=== PATIENT | female | born 1935 | race Caucasian/White ===

== ENCOUNTER 2022-04-26 12:39 | Outpatient (CLI) | payer MEDICARE, OTHER, SELFPAY | END 2022-04-26 12:40 | disposition home or self-care (01) | LOC: AMB 05-29 13:10 | PROVIDERS: Visit Provider Family Medicine | DX: R53.1 Weakness (principal) | CPT/HCPCS: A0998 ==

== ENCOUNTER 2023-12-21 13:34 | Outpatient (CLI) | payer MEDICARE, OTHER, SELFPAY | END 2023-12-21 13:35 | disposition home or self-care (01) | LOC: AMB 12-27 07:14 | PROVIDERS: PCP Family Medicine; Visit Provider Family Medicine | DX: M54.9 Dorsalgia, unspecified (principal) | CPT/HCPCS: A0425; A0429 ==

== ENCOUNTER 2023-12-21 13:51 | Observation (INO) | payer MEDICARE, OTHER, SELFPAY ==
[2023-12-21] VITALS (15 sets, daily range): BP systolic 105–145; BP diastolic 54–121; PULSE 53–79; RESP 12–18; TEMP 36–36.5; O2SAT 95–97; BMI 30.4; BMI 30.8
--- NOTE | 2023-12-21 14:07 | ED.BACK ---
HPI - Back Pain/Injury General Time Seen by Provider: 14:07 <Nadia Hammond MD - Last Filed: 12/24/23 09:06> Date Seen: 12/21/23 <Nadia Hammond MD - Last Filed: 12/24/23 09:06> Chief Complaint: Back Injury/Pain <Nadia Hammond MD - Last Filed: 12/24/23 09:06> Stated Complaint: Back pain <Nadia Hammond MD - Last Filed: 12/24/23 09:06> Time Seen by Provider: 12/21/23 13:53 <Nadia Hammond MD - Last Filed: 12/24/23 09:06> Source: patient, family, EMS and RN notes reviewed <Nadia Hammond MD - Last Filed: 12/24/23 09:06> Mode of arrival: EMS <Nadia Hammond MD - Last Filed: 12/24/23 09:06> Limitations: no limitations <Nadia Hammond MD - Last Filed: 12/24/23 09:06> History of Present Illness HPI Narrative: This 88-year-old female is brought over from [facility] by EMS for increasing low back pain. Patient is in independent living but does get staff to give her a.m. medications. She otherwise is in independent living there. On Thursday around 11:00 a.m. patient started having difficulty getting out of a chair due to low back pain. There was no trauma no fall. Her daughter notes she has a history of a compression fraction 2018. She was initially seen here, plain films obtained which did not show anything, was discharged. Her niece brought her to her house and by the time they were in [place], she was having so much pain they did go in and had an MRI showing the compression fracture, the believe it was L5. She resided in [place] except for [place] until convalescing after her last compression fracture. In July of 2022 she had a 2nd compression fracture, went to rehab and then her niece moved her up to [place]. It is hurting to turn, walk, any movement. She does have a back brace which her niece got on her yesterday which did bring some relief. Yesterday she was having significant difficulty just getting out of bed to go to the toilet. There is no numbness tingling in the legs. She states she occasionally feels the pain going into the left leg with walking. Her niece is interested in having MRI done, understands the limitations of initial plain film imaging. Patient does have some underlying dementia/memory issues per her niece. She is on anticoagulants, only a lower her Tylenol residing independently so that she does not have increased risk of falls and complications of constipation per her niece. Patient declines anything for pain management at this time, just lying flat she is not uncomfortable. <Nadia Hammond MD - Last Filed: 12/24/23 09:06> Related Data Home Medications: Home Medications ?Medication ?Instructions ?Recorded ?Confirmed bimatoprost 0.01 % eye drops 1 drp ophthalmic (eye) QPM 12/21/23 12/21/23 (Lumigan) acetaminophen 500 mg capsule 1,000 mg PO Q8H PRN 12/22/23 12/22/23 apixaban 5 mg tablet (Eliquis) 5 mg PO BID 12/22/23 12/22/23 calcium carbonate 600 mg-vitamin 2 tab PO DAILY 12/22/23 12/22/23 D3 10 mcg (400 unit) tablet (Calcium 600 + D(3)) donepezil 10 mg tablet 10 mg PO QHS 12/22/23 12/22/23 levothyroxine 50 mcg tablet 50 mcg PO DAILY 12/22/23 12/22/23 (Levoxyl) multivitamin,rb-rczj-Dh-FA-min tab 12/22/23 timolol 0.5 % eye drops (Betimol) 1 drp ophthalmic (eye) DAILY 12/22/23 12/22/23 venlafaxine 75 mg capsule,extended 225 mg PO QPM 12/22/23 12/22/23 release 24 hr vitamins A,C,I-vsko-dasgcd 4,296 1 cap PO DAILY 12/22/23 12/22/23 mcg-226 mg-90 mg capsule (PreserVision AREDS) Previous Rx's ?Medication ?Instructions ?Recorded acetaminophen 650 mg 1,300 mg (2 x 650 mg) PO Q12H #60 12/23/23 tablet,extended release tabs lidocaine 5 % topical patch 1 patch transdermal Q24H 30 days 12/23/23 #30 ea <Nadia Hammond MD - Last Filed: 12/24/23 09:06> Allergies/Adverse Reactions: Allergies Allergy/AdvReac Type Severity Reaction Status Date / Time No Known Drug Allergies Allergy Verified 12/21/23 14:03 <Nadia Hammond MD - Last Filed: 12/24/23 09:06> Review of Systems Status of ROS: Reports: 6 or more systems reviewed and unremarkable except as noted in History and below <Nadia Hammond MD - Last Filed: 12/24/23 09:06> Narrative: Negative at this time unless noted in the HPI but do question patient's memory for recent details. Her niece does support that she does have memory issues per <Nadia Hammond MD - Last Filed: 12/24/23 09:06> [facility] Medical History: Medical History (Updated 12/23/23 @ 12:17 by Jack Godwin MD) Osteoarthritis of right knee ?M17.11 - Unilateral primary osteoarthritis, right knee (ICD-10) Chronic GERD ?K21.9 - Gastro-esophageal reflux disease without esophagitis (ICD-10) Depression ?F32.A - Depression, unspecified (ICD-10) Chronic anticoagulation ?Z79.01 - supervisor intermediates (current) use of anticoagulants (ICD-10) Paroxysmal A-fib ?I48.0 - Paroxysmal atrial fibrillation (ICD-10) Hypothyroidism ?E03.9 - Hypothyroidism, unspecified (ICD-10) Dementia ?F03.90 - Unspecified dementia, unspecified severity, without behavioral disturbance, psychotic disturbance, mood disturbance, and anxiety (ICD-10) <Nadia Hammond MD - Last Filed: 12/24/23 09:06> Surgical History: Surgical History (Updated 12/21/23 @ 20:16 by Lauren Nichole MD) Hx of tonsillectomy ?Z90.89 - Acquired absence of other organs (ICD-10) Hx of total knee arthroplasty ?Z96.659 - Presence of unspecified artificial knee joint (ICD-10) History of cataract ?Z86.69 - Personal history of other diseases of the nervous system and sense organs (ICD-10) History of appendectomy ?Z90.49 - Acquired absence of other specified parts of digestive tract (ICD-10) <Nadia Hammond MD - Last Filed: 12/24/23 09:06> Social History: Social History (Updated 12/21/23 @ 20:38 by Lauren Nichole MD) Narrative: Resides at [facility]. Her niece is her emergency contact and healthcare power document review specialist. . no children. Lived in [place] for years. What is your current living situation?: I presently have a place to live Problems where you live: no known problems Problems where you live details: n/a In the past 12 months, utilities in danger of being shut off: no In past 12 months, lack of transportation kept you from medical appts, meetings, work, or getting things needed for daily living: no In the past 12 mos, have been you worried that your food would run out before you had money to buy more?: never true In the past 12 mos, the food you bought just didn't last and you didn't have money to buy more?: never true Smoking Status: Never smoker How often do you have a drink containing alcohol: never AUDIT-C Alcohol total score: 0 Non-prescribed substance use: denies use Caffeine: Yes (coffee) How often does anyone, including family, friends and others, physically hurt you: never How often does anyone, including family, friends and others, insult or talk down to you: never How often does anyone, including family, friends and others, threaten you with harm: never How often does anyone, including family, friends and others, scream or curse at you: never <Nadia Hammond MD - Last Filed: 12/24/23 09:06> Exam Const: Vital Signs, click to edit/add: Vital Signs - 24 hr 12/21/23 13:57 12/21/23 14:01 12/21/23 15:02 Temperature 97.0 F L Pulse Rate 66 67 Pulse Rate [Pulse Oximeter] 61 Respiratory Rate 16 14 16 Blood Pressure 112/54 L Blood Pressure [Ri ght Upper Arm] 124/68 Pulse Oximetry 97 95 97 Oxygen Delivery Me thod Room Air 12/21/23 15:32 12/21/23 16:01 12/21/23 16:31 Temperature Pulse Rate 58 L 60 79 Pulse Rate [Pulse Oximeter] Respiratory Rate 14 12 12 Blood Pressure 119/76 117/70 105/63 Blood Pressure [Ri ght Upper Arm] Pulse Oximetry 96 97 95 Oxygen Delivery Me thod 12/21/23 17:32 12/21/23 18:02 12/21/23 19:01 Temperature Pulse Rate 63 60 64 Pulse Rate [Pulse Oximeter] Respiratory Rate 14 14 16 Blood Pressure 145/121 H 124/79 124/61 Blood Pressure [Ri ght Upper Arm] Pulse Oximetry 95 95 97 Oxygen Delivery Me thod 12/21/23 20:02 12/21/23 20:11 Temperature 97.0 F L Pulse Rate 53 L Pulse Rate [Pulse Oximeter] 61 Respiratory Rate 14 14 Blood Pressure 114/65 Blood Pressure [Ri ght Upper Arm] 124/68 Pulse Oximetry 97 Oxygen Delivery Me thod This 88-year-old female was brought in by EMS, she is alert, interactive, no apparent distress. Looks comfortable lying flat in the bed. Sclera clear, conjugate gaze. Able speak in complete sentences. Lungs are clear anteriorly along the axilla. CV regular rate and rhythm, do not hear any murmur. Abdomen is soft, rebound or guarding, no organomegaly. She has normal sensation in her lower extremities, normal motor of toes and ankles, can overcome her strength but it is symmetrical in not what I would expect for her age. Can straight leg raise with my assistance, does complain that her hamstrings hurt on the left but no radiculopathic pain. Complains of pain about 30 degrees on the right leg, some pain going into upper leg. Did not have patient ambulate at this time. <Ndaia Hammond MD - Last Filed: 12/24/23 09:06> Vital Signs, click to edit/add: Vital Signs - 24 hr 12/21/23 13:57 12/21/23 14:01 12/21/23 15:02 Temperature 97.0 F L Pulse Rate 66 67 Pulse Rate [Pulse Oximeter] 61 Respiratory Rate 16 14 16 Blood Pressure 112/54 L Blood Pressure [Ri ght Upper Arm] 124/68 Pulse Oximetry 97 95 97 Oxygen Delivery Me thod Room Air 12/21/23 15:32 12/21/23 16:01 12/21/23 16:31 Temperature Pulse Rate 58 L 60 79 Pulse Rate [Pulse Oximeter] Respiratory Rate 14 12 12 Blood Pressure 119/76 117/70 105/63 Blood Pressure [Ri ght Upper Arm] Pulse Oximetry 96 97 95 Oxygen Delivery Me thod 12/21/23 17:32 12/21/23 18:02 12/21/23 19:01 Temperature Pulse Rate 63 60 64 Pulse Rate [Pulse Oximeter] Respiratory Rate 14 14 16 Blood Pressure 145/121 H 124/79 124/61 Blood Pressure [Ri ght Upper Arm] Pulse Oximetry 95 95 97 Oxygen Delivery Me thod 12/21/23 20:02 12/21/23 20:11 Temperature 97.0 F L Pulse Rate 53 L Pulse Rate [Pulse Oximeter] 61 Respiratory Rate 14 14 Blood Pressure 114/65 Blood Pressure [Ri ght Upper Arm] 124/68 Pulse Oximetry 97 Oxygen Delivery Me thod <Leodan Anderson MD - Last Filed: 12/21/23 20:24> Documenting provider has reviewed patient's vital signs: yes <Nadia Hammond MD - Last Filed: 12/24/23 09:06> Course Course ED Course: Patient signed out to Dr. Anderson at 4:00 p.m.-shift change. 88-year-old female with a history of mild dementia brought to the ER today by EMS from her assisted living for low back pain. She has a previous history of a lumbar compression fracture in 2018 and then a 2nd lumbar compression fracture in 2021. She is having low back pain with some radiation to her left leg for the past couple of days. Is pretty uncomfortable when she is up and walking and having difficulty moving around but is not having pain when resting in bed. He also possible intermittent radicular symptoms. No focal weakness on her exam. MRI of her lumbar spine has been ordered and will be obtained at about 4:30 p.m.. I will follow-up on the results. In addition we will give the patient a g of Tylenol here to see if he can relieve her pain and get her more mobilized. If the MRI shows a surgical abnormality she may require transfer to a appropriate facility with neuro or spine surgery. If it does not show any acute surgical abnormality, the patient may still require admission here in [place] for pain control and PT. However if the MRI is reassuring and the patient's pain is improved after Tylenol, she could potentially discharge back to her care facility at [facility]. MRI lumbar spine Impression: 1. 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 2. Chronic mild-moderate L3 superior endplate compression deformity. 3. Lumbar spondylosis, low-grade degenerative spondylolisthesis, and Modic endplate changes as detailed. 4. At T12-L1, mild-moderate spinal canal narrowing secondary to L1 cortical retropulsion. 5. At L4-L5, [id number]-right lateral recess stenosis with potential descending L5 nerve root impingement. 6. No high-grade neural foraminal or central spinal canal stenosis. Since lumbar spine spine MRI does not show any clear compression fracture and or any clear new acute pathology. Will obtain CT pelvis to look for other injury such as possible pelvic or hip fracture that be causing her left buttock pain. CT pelvis IMPRESSION: No acute or specific finding to explain left buttock or hip pain. MRI does show at L4-5 a left more than right lateral recess stenosis with potential descending L5 nerve root impingement. However no definite acute surgical lesion. Overall the patient's pain is tolerable and controlled and is quite comfortable she is resting in bed. She is still quite uncomfortable wonder she tries to get up and move around. She does require assist of at least 1 person to get out of bed. She think she would be able to walk with her walker. She is able to walk a few steps in the ER room. However she needs assist to get in and out of bed. Discussed with her daughter who is also concerned about her potential worsening dementia. MDM: At this point although there is no acute surgical lesion noted on her MRI L-spine or any acute fracture noted on her CT pelvis, she is having ongoing pain that makes it difficult for her to mobilize. Additionally her pain is confounded by the fact that she has dementia. She does represent a significant fall risk. She is requiring assist to get out of bed but once out of bed can walk with a walker. Overall she does not have adequate supports in her independent living to manage her current he level of mobility. family requests admission. I agree that hospitalization (at least overnight) for pain control and physical therapy consultation and potentially to arrange better outpatient resources, is indicated. Laboratory workup shows normal CBC and BMP. Mild anemia. No signs of active bleeding. She is not having any UTI symptoms. Discussed with our hospitalist, Dr. Nichole, who graciously agrees to admit. Updated patient and her family about the CT and MRI results. They are agreeable to be admitted. <Leodan Anderson MD - Last Filed: 12/21/23 20:24> Vital Signs Vital signs: Initial Vital Signs Temperature 97.0 F L 12/21/23 13:57 Temperature Source Temporal Artery Scan 12/21/23 13:57 Pulse Rate 61 12/21/23 13:57 Respiratory Rate 16 12/21/23 13:57 Blood Pressure 124/68 12/21/23 13:57 Blood Pressure Mean 86 12/21/23 13:57 Blood Pressure Position Supine 12/21/23 13:57 Pulse Oximetry 97 12/21/23 13:57 Oxygen Delivery Method Room Air 12/21/23 13:57 Vital Signs Temperature 97.0 F L 12/21/23 13:57 Pulse Rate 61 12/21/23 13:57 Respiratory Rate 16 12/21/23 13:57 Blood Pressure 124/68 12/21/23 13:57 Pulse Oximetry 97 12/21/23 13:57 Oxygen Delivery Method Room Air 12/21/23 13:57 Temperature 97.8 F 12/23/23 07:00 Pulse Rate 61 12/23/23 07:00 Respiratory Rate 16 12/23/23 07:00 Blood Pressure 118/73 12/23/23 07:00 Pulse Oximetry 96 12/23/23 07:00 Oxygen Delivery Method Room Air 12/23/23 07:00 <Nadia Hammond MD - Last Filed: 12/24/23 09:06> Initial Vital Signs Temperature 97.0 F L 12/21/23 13:57 Temperature Source Temporal Artery Scan 12/21/23 13:57 Pulse Rate 61 12/21/23 13:57 Respiratory Rate 16 12/21/23 13:57 Blood Pressure 124/68 12/21/23 13:57 Blood Pressure Mean 86 12/21/23 13:57 Blood Pressure Position Supine 12/21/23 13:57 Pulse Oximetry 97 12/21/23 13:57 Oxygen Delivery Method Room Air 12/21/23 13:57 Vital Signs Temperature 97.0 F L 12/21/23 13:57 Pulse Rate 61 12/21/23 13:57 Respiratory Rate 16 12/21/23 13:57 Blood Pressure 124/68 12/21/23 13:57 Pulse Oximetry 97 12/21/23 13:57 Oxygen Delivery Method Room Air 12/21/23 13:57 Temperature 97.8 F 12/23/23 07:00 Pulse Rate 61 12/23/23 07:00 Respiratory Rate 16 12/23/23 07:00 Blood Pressure 118/73 12/23/23 07:00 Pulse Oximetry 96 12/23/23 07:00 Oxygen Delivery Method Room Air 12/23/23 07:00 <Leodan Anderson MD - Last Filed: 12/21/23 20:24> Medications Administered Medications: Discontinued Medications Generic Name Dose Route Start Last Admin Trade Name Freq PRN Reason Stop Dose Admin Acetaminophen 1,000 mg 12/21/23 16:14 12/21/23 17:20 Acetaminophen 500 Mg Tablet PO 12/21/23 16:15 1,000 mg ONCE ONE Administration Acetaminophen 1,300 mg 12/22/23 01:00 12/23/23 09:01 Acetaminophen 650 Mg Tablet Er PO 1,300 mg Q8H SARAN Administration Apixaban 5 mg 12/21/23 21:00 12/23/23 09:01 Apixaban 5 Mg Tablet PO 5 mg BID SARAN Administration Calcitonin Chambers 1 spray 12/21/23 21:00 12/22/23 20:43 Calcitonin Chambers Nasal [place] 200 Unit NOSTRIL-B 1 spray HS SARAN Administration Donepezil HCl 10 mg 12/21/23 21:00 12/23/23 09:01 Donepezil 10 Mg Tablet PO 10 mg DAILY SARAN Administration Ketorolac Tromethamine 15 mg 12/21/23 18:16 12/21/23 18:40 Ketorolac 15 Mg/Ml Inj IVP 12/21/23 18:17 15 mg ONCE ONE Administration Levothyroxine Sodium 50 mcg 12/23/23 08:00 12/23/23 09:01 Levothyroxine 50 Mcg Tablet PO 50 mcg DAILY@0800 SARAN Administration Lidocaine 1 patch 12/21/23 20:45 12/22/23 20:43 Lidocaine 5% Patch TRANSDERMA 1 patch Q24H SARAN Administration Protocol Timolol [Betimol] 0. 0 drop 12/22/23 10:15 12/22/23 10:41 5 % Drops Opth EYE-BOTH 1 drop DAILY SARAN Administration Bimatoprost Opth 0.3 0 each 12/22/23 10:30 12/22/23 10:42 % Soln EYE-BOTH Not Given HS SARAN Senna/Docusate Sodium 1 tab 12/21/23 20:27 12/23/23 09:01 Sennosides/Docusate Tablet PO 1 tab DAILY PRN Administration Sodium Chloride 5 ml 12/21/23 21:00 12/22/23 21:03 Sodium Chloride 0.9 % (Flush) 10 Ml Syringe IVF Not Given BID SARAN Venlafaxine HCl 225 mg 12/22/23 09:00 12/23/23 09:01 Venlafaxine Er 75 Mg Capsule PO 225 mg DAILY SARAN Administration <Nadia Hammond MD - Last Filed: 12/24/23 09:06> Discontinued Medications Generic Name Dose Route Start Last Admin Trade Name Freq PRN Reason Stop Dose Admin Acetaminophen 1,000 mg 12/21/23 16:14 12/21/23 17:20 Acetaminophen 500 Mg Tablet PO 12/21/23 16:15 1,000 mg ONCE ONE Administration Acetaminophen 1,300 mg 12/22/23 01:00 12/23/23 09:01 Acetaminophen 650 Mg Tablet Er PO 1,300 mg Q8H SARAN Administration Apixaban 5 mg 12/21/23 21:00 12/23/23 09:01 Apixaban 5 Mg Tablet PO 5 mg BID SARAN Administration Calcitonin Chambers 1 spray 12/21/23 21:00 12/22/23 20:43 Calcitonin Chambers Nasal [place] 200 Unit NOSTRIL-B 1 spray HS SARAN Administration Donepezil HCl 10 mg 12/21/23 21:00 12/23/23 09:01 Donepezil 10 Mg Tablet PO 10 mg DAILY SARAN Administration Ketorolac Tromethamine 15 mg 12/21/23 18:16 12/21/23 18:40 Ketorolac 15 Mg/Ml Inj IVP 12/21/23 18:17 15 mg ONCE ONE Administration Levothyroxine Sodium 50 mcg 12/23/23 08:00 12/23/23 09:01 Levothyroxine 50 Mcg Tablet PO 50 mcg DAILY@0800 SARAN Administration Lidocaine 1 patch 12/21/23 20:45 12/22/23 20:43 Lidocaine 5% Patch TRANSDERMA 1 patch Q24H SARAN Administration Protocol Timolol [Betimol] 0. 0 drop 12/22/23 10:15 12/22/23 10:41 5 % Drops Opth EYE-BOTH 1 drop DAILY SARAN Administration Bimatoprost Opth 0.3 0 each 12/22/23 10:30 12/22/23 10:42 % Soln EYE-BOTH Not Given HS SARAN Senna/Docusate Sodium 1 tab 12/21/23 20:27 12/23/23 09:01 Sennosides/Docusate Tablet PO 1 tab DAILY PRN Administration Sodium Chloride 5 ml 12/21/23 21:00 12/22/23 21:03 Sodium Chloride 0.9 % (Flush) 10 Ml Syringe IVF Not Given BID SARAN Venlafaxine HCl 225 mg 12/22/23 09:00 12/23/23 09:01 Venlafaxine Er 75 Mg Capsule PO 225 mg DAILY SARAN Administration <Leodan Anderson MD - Last Filed: 12/21/23 20:24> MDM - Back Pain/Injury Lab Data Labs: Lab Results 12/21/23 Range/Units 17:35 WBC 5.50 (4.50-11.00) K/uL RBC 3.42 L (4.00-5.20) m/uL Hgb 11.6 L (12.0-16.0) gm/dL Hct 36.0 (33.0-51.0) % MCV 105 H (80-100) fL MCH 34 (26-34) pg MCHC 32 (32-36) gm/dL RDW Coeff of Bret 13.0 (11.5-15.5) % Plt Count 259 (140-440) K/uL Neut % (Auto) 57.4 (42.0-72.0) % Lymph % (Auto) 26.9 (20-44) % [place] % (Auto) 13.1 H (0.0-11.0) % Eos % (Auto) 2.2 (0.0-7.0) % Baso % (Auto) 0.4 (0.0-3.0) % Neut # (Auto) 3.16 (1.7-7.0) K/uL Lymph # (Auto) 1.48 (0.90-2.90) K/uL [place] # (Auto) 0.70 (0.00-0.90) K/UL Eos # (Auto) 0.12 (0.00-0.50) K/uL Baso # (Auto) 0.02 (0.00-0.30) K/uL Abs Immat Gran (auto) 0.00 (0.00-0.30) K/uL Imm/Tot Granulo (auto) 0.0 % Sodium 140 (135-149) mmol/L Potassium 4.2 (3.6-5.1) mmol/L Chloride 106 (96-114) mmol/L Carbon Dioxide 27 (20-32) mmol/L Anion Gap 7 (7-15) mEq/L BUN 13 (7-30) mg/dL Creatinine 0.9 (0.5-1.5) mg/dL Estimated Creat Clear 30.76 Estimated GFR 61 ml/min Glucose 104 (60-115) mg/dL Calcium 9.0 (8.4-10.6) mg/dL <Nadia Hammond MD - Last Filed: 12/24/23 09:06> Lab Results 12/21/23 Range/Units 17:35 WBC 5.50 (4.50-11.00) K/uL RBC 3.42 L (4.00-5.20) m/uL Hgb 11.6 L (12.0-16.0) gm/dL Hct 36.0 (33.0-51.0) % MCV 105 H (80-100) fL MCH 34 (26-34) pg MCHC 32 (32-36) gm/dL RDW Coeff of Bret 13.0 (11.5-15.5) % Plt Count 259 (140-440) K/uL Neut % (Auto) 57.4 (42.0-72.0) % Lymph % (Auto) 26.9 (20-44) % [place] % (Auto) 13.1 H (0.0-11.0) % Eos % (Auto) 2.2 (0.0-7.0) % Baso % (Auto) 0.4 (0.0-3.0) % Neut # (Auto) 3.16 (1.7-7.0) K/uL Lymph # (Auto) 1.48 (0.90-2.90) K/uL [place] # (Auto) 0.70 (0.00-0.90) K/UL Eos # (Auto) 0.12 (0.00-0.50) K/uL Baso # (Auto) 0.02 (0.00-0.30) K/uL Abs Immat Gran (auto) 0.00 (0.00-0.30) K/uL Imm/Tot Granulo (auto) 0.0 % Sodium 140 (135-149) mmol/L Potassium 4.2 (3.6-5.1) mmol/L Chloride 106 (96-114) mmol/L Carbon Dioxide 27 (20-32) mmol/L Anion Gap 7 (7-15) mEq/L BUN 13 (7-30) mg/dL Creatinine 0.9 (0.5-1.5) mg/dL Estimated Creat Clear 30.76 Estimated GFR 61 ml/min Glucose 104 (60-115) mg/dL Calcium 9.0 (8.4-10.6) mg/dL <Leodan Anderson MD - Last Filed: 12/21/23 20:24> Discharge Plan Discharge Clinical Impression: Low back pain, Left buttock pain <Nadia Hammond MD - Last Filed: 12/24/23 09:06> Patient Disposition: Admitted As Observation <Nadia Hammond MD - Last Filed: 12/24/23 09:06> Condition: Stable <Nadia Hammond MD - Last Filed: 12/24/23 09:06> Activity Level: Activity as Tolerated and Use Walker <Nadia Hammond MD - Last Filed: 12/24/23 09:06> Activity as Tolerated and Use Walker <Leodan Anderson MD - Last Filed: 12/21/23 20:24> Discharge Diet: Regular <Nadia Hammond MD - Last Filed: 12/24/23 09:06> Regular <Leodan Anderson MD - Last Filed: 12/21/23 20:24>
--- NOTE | 2023-12-21 14:16 | MR_ITS ---
Patient: LARRY SAUNDERS Facility:?[facility] RIS Patient ID:?[id number] Site Patient ID:?[id number]. Site :?[id number] Study:?MRI-Spine Lumbar WO-12/21/2023 5:08:45 PM Ordering Physician:DAYO Final Report: Indication: Back pain Technique: Multiplanar, multisequence, MRI of the lumbar spine, obtained without contrast. Comparison: CT abdomen and pelvis report 03/11/2021 Findings: The lumbar lordosis is slightly exaggerated. There is a chronic severe L1 burst fracture, with approximately 8 mm cortical retropulsion, and a chronic mild- moderate L3 superior endplate compression deformity without significant retropulsion. Degenerative grade 1 retrolisthesis at L3-4, and degenerative grade 1 anterolisthesis at L4-5. No acute osseous abnormality. Minor Modic type 1 opposing endplate changes posteriorly at L2-3. Modic type 2 opposing endplate changes at L3-4. Partial bony ankylosis across L5-S1. Conus medullaris terminates at L2. No concerning findings in the paraspinal soft tissues. The included SI joints are unremarkable. T12-L1: L1 posterosuperior corner retropulsion, mild diffuse disc bulge, facet arthropathy. No neural foraminal stenosis. Mild-moderate spinal canal narrowing. L1-L2: Minimal disc bulge, facet arthropathy. No neural foraminal or spinal canal stenosis. L2-L3: Diffuse disc bulge, right asymmetric facet arthropathy. No left, mild right neural foraminal narrowing. No spinal canal stenosis. L3-L4: Mild diffuse disc-osteophyte complex, facet arthropathy. No significant neural foraminal stenosis. Mild right lateral recess narrowing without central spinal canal stenosis.. L4-L5: Disc unroofing/bulge, left asymmetric facet arthropathy. No neural foraminal stenosis. Mild spinal canal narrowing with lwni-kqhhmis-bmor-right lateral recess stenosis and potential descending L5 nerve root impingement. L5-S1: Partial disc space ankylosis, laterally eccentric osteophytes, facet arthropathy. No neural foraminal or spinal canal stenosis. Impression: 1. 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 2. Chronic mild-moderate L3 superior endplate compression deformity. 3. Lumbar spondylosis, low-grade degenerative spondylolisthesis, and Modic endplate changes as detailed. 4. At T12-L1, mild-moderate spinal canal narrowing secondary to L1 cortical retropulsion. 5. At L4-L5, iosp-iqkupgw-pfrv-right lateral recess stenosis with potential descending L5 nerve root impingement. 6. No high-grade neural foraminal or central spinal canal stenosis. Dictated by Steff Andrews MD @ 12/21/2023 5:34:43 PM Signed by:?Steff Andrews MD @12/21/2023 5:34:43 PM (Electronic Signature)
[2023-12-21] MEDS: ACETAMINOPHEN 500 MG TABLET 1000 MG PO (17:20)
--- NOTE | 2023-12-21 18:13 | CT_ITS ---
Patient: LARRY SAUNDERS Facility:?[facility] Patient ID:?[id number] Site Patient ID:?[id number] Site :?[id number] Study:?CT-Pelvis w/o-12/21/2023 6:28:49 PM Ordering Physician:?Leodan Anderson Final Report: INDICATION: Left buttock pain. Left hip pain. TECHNIQUE: CT pelvis without contrast. COMPARISON: None. FINDINGS: Bones: Alignment is normal. No sign of acute fracture. No suspicious bony lesions. Joints: Unremarkable. No significant degenerative changes. Soft tissues: Unremarkable. IMPRESSION: No acute or specific finding to explain left buttock or hip pain. Please note that all CT scans at this facility use dose modulation, iterative reconstruction, and/or weight-based dosing when appropriate to reduce radiation dose to as low as reasonably achievable. Dictated by Brandt Renner MD @ 12/21/2023 7:15:12 PM Signed by:?Brandt Renner MD @12/21/2023 7:15:12 PM (Electronic Signature)
[2023-12-21] MEDS: KETOROLAC 15 MG/ML inj IVP (18:40)
[2023-12-21 18:46] LABS: Basophils Absolute Auto 0.02 K/uL (0.00-0.30); Basophils Percent Auto 0.4 % (0.0-3.0); Eosinophils Absolute Auto 0.12 K/uL (0.00-0.50); Eosinophils Percent Auto 2.2 % (0.0-7.0); Hemoglobin* 11.6 gm/dL (12.0-16.0); Lymphocytes Absolute Auto 1.48 K/uL (0.90-2.90); Lymphocytes Percent Auto 26.9 % (20-44); Mean Corpuscular HGB Conc 32 gm/dL (32-36); Mean Corpuscular Hemoglobin 34 pg (26-34); Mean Corpuscular Volume 105 fL (80-100); Monocytes Percent Auto 13.1 % (0.0-11.0); Neutrophils Absolute Auto 3.16 K/uL (1.7-7.0); Neutrophils Percent Auto 57.4 % (42.0-72.0); Platelet Count* 259 K/uL (140-440); Red Blood Count 3.42 m/uL (4.00-5.20)
[2023-12-21 19:02] LABS: Anion Gap 7 mEq/L (7-15); Blood Urea Nitrogen* 13 mg/dL (7-30); Carbon Dioxide* 27 mmol/L (20-32); Chloride* 106 mmol/L (96-114); Creatinine* 0.9 mg/dL (0.5-1.5); Est. Creatinine Clearance* 30.76; Estimated Glomerular Filt Rate 61 ml/min; Glucose* 104 mg/dL (60-115); Potassium* 4.2 mmol/L (3.6-5.1); Sodium* 140 mmol/L (135-149)
[2023-12-21 19:05] LABS: Slide Review Reflex No
--- NOTE | 2023-12-21 20:03 | P.IMHP_ITS ---
Hospitalist- H&P: HPI History of Present Illness Date Seen: 12/21/23 Chief complaint: Back pain Narrative: ADMISSION HISTORY AND PHYSICAL - HOSPITALIST Chief Complaint: Acute on chronic pain, is HPI: 88-year-old female with a history of mild cognitive decline, hypothyroidism, paroxysmal AFib on apixaban, depression and GERD is brought in by ambulance secondary to decreased mobility over the last 3 days. Patient lives across the street at [facility] apartments with limited services. The staff and family have noted that Coretta has not been ambulating per her baseline and has been complaining of low back and left leg pain. No witnessed falls or reported falls. No trauma. She does have a history of previous osteoporotic fractures 2018, 2021. She had a lumbar MRI this afternoon, ordered by our ED. nonacute findings. Pelvic CT later in the day again, shows no acute findings. She is unable to take care of herself and emergency medicine has asked us to admit for further rehab and supportive care. ER COURSE: Labs, imaging, Toradol and acetaminophen. After prolonged observation, we were asked to admit. CODE STATUS: Full Code. EMERGENCY CONTACT PLAN: AnthonyJosie fang? Niece?Rel to [facility]? [phone]?Home Phone? I've updated the PFSH, medications and allergies in the Expanse tabs. INVESTIGATIONS: LABS/MICRO/ECG/IMAGING Vitals reviewed. Afebrile. Hemodynamically stable. On room air. CBC reflects a hemoglobin of 11.6. A normal white blood cell count. MCV 105. Normal platelet count. Basic metabolic panel is normal. Lumbar MRI Impression: 1. 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 2. Chronic mild-moderate L3 superior endplate compression deformity. 3. Lumbar spondylosis, low-grade degenerative spondylolisthesis, and Modic endplate changes as detailed. 4. At T12-L1, mild-moderate spinal canal narrowing secondary to L1 cortical retropulsion. 5. At L4-L5, owbq-fixlepp-bkzh-right lateral recess stenosis with potential descending L5 nerve root impingement. 6. No high-grade neural foraminal or central spinal canal stenosis. Pelvic CT IMPRESSION: No acute or specific finding to explain left buttock or hip pain. REVIEW OF SYSTEMS: 12-point ROS completed with patient and negative unless otherwise stated in HPI or below. PHYSICAL EXAM: CONSTITUTIONAL: VITAL SIGNS: see record. HEENT: Normocephalic, atraumatic. PERRL, EOMI, conjunctivae pink, no scleral icterus. Ears and nose externally normal. Pharynx normal. NECK: No JVD. No carotid bruit, no thyromegaly, no adenopathy. CHEST: Clear to auscultation bilaterally HEART: S1 and S2 normal. No harsh murmurs. Edema MUSCULOSKELETAL: No bruising. pain elicited in the left buttock with external and internal rotation of hip. strength normal. NEURO: Cranial nerves intact. Grossly intact. No asymmetric findings. SKIN: No rashes, petechiae, concerning changes PSYCHIATRIC: Euthymic. ADMIT TO MEDSURG: FLOOR CARE DVT: continue eliquis GI: PO intake Time spent: Today I spent 75 minutes seeing the patient, discussing the patient with ER staff, reviewing Expanse and EPIC notes/diagnostics, discussing the care plan with our care time that includes social work, PT/OT, pharmacy, RT, fdc and documenting my impressions and plan in the medical record. [facility] Medical History (Updated 12/21/23 @ 20:57 by Lauren Nichole MD) Osteoarthritis of right knee ?M17.11 - Unilateral primary osteoarthritis, right knee (ICD-10) Chronic GERD ?K21.9 - Gastro-esophageal reflux disease without esophagitis (ICD-10) Depression ?F32.A - Depression, unspecified (ICD-10) Chronic anticoagulation ?Z79.01 - longterm (current) use of anticoagulants (ICD-10) Paroxysmal A-fib ?I48.0 - Paroxysmal atrial fibrillation (ICD-10) Hypothyroidism ?E03.9 - Hypothyroidism, unspecified (ICD-10) Dementia ?F03.90 - Unspecified dementia, unspecified severity, without behavioral disturbance, psychotic disturbance, mood disturbance, and anxiety (ICD-10) Surgical History (Updated 12/21/23 @ 20:16 by Lauren Nichole MD) Hx of tonsillectomy ?Z90.89 - Acquired absence of other organs (ICD-10) Hx of total knee arthroplasty ?Z96.659 - Presence of unspecified artificial knee joint (ICD-10) History of cataract ?Z86.69 - Personal history of other diseases of the nervous system and sense organs (ICD-10) History of appendectomy ?Z90.49 - Acquired absence of other specified parts of digestive tract (ICD- 10) Social History (Updated 12/21/23 @ 20:38 by Lauren Nichole MD) Narrative: Resides at [facility]. Her niece is her emergency contact and healthcare power commonwealth attorney. . no children. Lived in [place] for years. Smoking Status: Never smoker How often do you have a drink containing alcohol: never AUDIT-C Alcohol total score: 0 Non-prescribed substance use: denies use Meds Home Medications and Allergies Home Medications Medication Instructions Recorded Confirmed Type bimatoprost 0.01 % eye drops 1 drp ophthalmic (eye) QPM 12/21/23 12/21/23 History (Lumigan) Allergies Allergy/AdvReac Type Severity Reaction Status Date / Time No Known Drug Allergies Allergy Verified 12/21/23 14:03 Exam Const: Vital Signs, click to edit/add: Vital Signs - 24 hr 12/21/23 13:57 12/21/23 14:01 12/21/23 15:02 Temperature 97.0 F L Pulse Rate 66 67 Pulse Rate [Pulse Oximeter] 61 Respiratory Rate 16 14 16 Blood Pressure 112/54 L Blood Pressure [Ri ght Upper Arm] 124/68 Pulse Oximetry 97 95 [facility] 12/21/23 15:32 12/21/23 16:01 12/21/23 16:31 Temperature Pulse Rate 58 L 60 79 Pulse Rate [Pulse Oximeter] Respiratory Rate 14 12 12 Blood Pressure 119/76 117/70 105/63 Blood Pressure [Ri ght Upper Arm] Pulse Oximetry 96 97 95 Oxygen Delivery Me thod 12/21/23 17:32 Temperature Pulse Rate 63 Pulse Rate [Pulse Oximeter] Respiratory Rate 14 Blood Pressure 145/121 H Blood Pressure [Ri ght Upper Arm] Pulse Oximetry 95 [facility] - H&P: Result Labs Labs: Short CBC 12/21/23 Range/Units 17:35 WBC 5.50 (4.50-11.00) K/uL Hgb 11.6 L (12.0-16.0) gm/dL Hct 36.0 (33.0-51.0) % Plt Count 259 (140-440) K/uL BMP 12/21/23 17:35 Sodium 140 Potassium 4.2 Chloride 106 Carbon Dioxide 27 BUN 13 Creatinine 0.9 Glucose 104 Calcium 9.0 Assessment and Plan Assessment and plan (1) Acute exacerbation of chronic low back pain: Problem comment: -no new fracture -pain management needed -calcitonin nasal, lidoderm, scheduled ER acetaminophen -avoid narcotics Status: Acute (2) Osteoporotic compression fracture of spine with delayed healing: Problem comment: -osteoporosis management per chart review - IV Reclast -adding calcitonin nasal -continue calcium and vit D Status: Acute (3) Dementia: Problem comment: -continue Aricept -day team may want OT to provide mini-mental Status: Acute (4) Hypothyroidism: Problem comment: -continue levothyroxine supplementation Status: Acute (5) Paroxysmal A-fib: Problem comment: -continue Eliquis -patient does not appear to be on any rate control or antihypertensives Status: Acute (6) Chronic anticoagulation: Problem comment: -continue Eliquis for paroxysmal AFib stroke prevention Status: Acute (7) Depression: Problem comment: -continue Effexor Status: Acute (8) Chronic GERD: Status: Acute (9) Osteoarthritis of right knee: Status: Acute
[2023-12-21] MEDS: APIXABAN 5 MG TABLET PO (22:17)
[2023-12-21] MEDS: DONEPEZIL 10 MG TABLET PO (22:17)
[2023-12-21] MEDS: LIDOCAINE 5% PATCH 1 PATCH TRANSDERMA (22:18)
[2023-12-21] MEDS: SODIUM CHLORIDE 0.9 % (FLUSH) 10 ML SYRINGE 5 ML IVF (22:28)
[2023-12-22] MEDS: ACETAMINOPHEN 650 MG TABLET ER 1300 MG PO ×3 (00:53→17:27)
[2023-12-22] MEDS: CALCITONIN SALMON NASAL SPRAY 200 UNIT 1 SPRAY NOSTRIL-B ×2 (01:00→20:43)
[2023-12-22 02:31] VITALS: BP 136/71; PULSE 67; RESP 17; TEMP 36.3; O2SAT 97
[2023-12-22 07:36] VITALS: BP 101/78; PULSE 73; RESP 18; TEMP 36.4; O2SAT 95
[2023-12-22] MEDS: DONEPEZIL 10 MG TABLET PO (08:41)
[2023-12-22] MEDS: APIXABAN 5 MG TABLET PO ×2 (08:41→20:43)
[2023-12-22] MEDS: VENLAFAXINE ER 75 MG CAPSULE 225 MG PO (08:41)
[2023-12-22] MEDS: SODIUM CHLORIDE 0.9 % (FLUSH) 10 ML SYRINGE 5 ML IVF (08:42)
--- NOTE | 2023-12-22 08:43 | PC.NURSE ---
Patient pleasant and cooperative with cares. Ambulated with walker, gait belt and assist of one. Lidocaine patch applied to left low back. Given scheduled Tylenol.?Denied pain.?
[2023-12-22 10:34] VITALS: BP 101/67; PULSE 82; RESP 16; TEMP 36.8; O2SAT 93
--- NOTE | 2023-12-22 14:07 | PC.NURSE ---
Pt alert and oriented. Pt SBA with gait belt and walker. Pt up to chair for early until mid morning. Pt napped after lunch. Per Pt?s niece Pt naps most of the day at home. Pt?s IV removed.?[facility]
[2023-12-22 15:00] VITALS: BP 111/73; PULSE 70; RESP 18; TEMP 36.1; O2SAT 94
--- NOTE | 2023-12-22 15:45 | P.IMPN_ITS ---
Progress Note: A&P Assessment and plan (1) Acute exacerbation of chronic low back pain: Problem details: -no new fracture -pain management needed -calcitonin nasal, lidoderm, scheduled ER acetaminophen -avoid narcotics Status: Acute (2) Osteoporotic compression fracture of spine with delayed healing: Problem details: -osteoporosis management per chart review - IV Reclast -adding calcitonin nasal -continue calcium and vit D Status: Acute (3) Dementia: Problem details: -continue Aricept -day team may want OT to provide mini-mental Status: Acute (4) Hypothyroidism: Problem details: -continue levothyroxine supplementation Status: Acute (5) Paroxysmal A-fib: Problem details: -continue Eliquis -patient does not appear to be on any rate control or antihypertensives Status: Acute (6) Chronic anticoagulation: Problem details: -continue Eliquis for paroxysmal AFib stroke prevention Status: Acute (7) Depression: Problem details: -continue Effexor Status: Acute (8) Chronic GERD: Status: Acute (9) Osteoarthritis of right knee: Status: Acute Plan 1. Reviewed impression with patient and with her niece who is her power of document review attorney for health. 2. Answered their questions. 3. Patient and niece here agreeable to continue with our evaluation and efforts to treat her pain. 4. If all continues to go well can consider the possibility of discharge as early as 12/23/2023. Time Spent With Patient Total time spent: 35 minutes Subjective Date Seen: 12/22/23 Interval history: Admission history of present illness: ?88-year-old female with a history of mild cognitive decline, hypothyroidism, paroxysmal AFib on apixaban, depression and GERD is brought in by ambulance secondary to decreased mobility over the last 3 days. Patient lives across the street at [facility] with limited services. The staff and family have noted that Coretta has not been ambulating per her baseline and has been complaining of low back and left leg pain. No witnessed falls or reported falls. No trauma. She does have a history of previous osteoporotic fractures 2018, 2021. She had a lumbar MRI this afternoon, ordered by our ED. nonacute findings. Pelvic CT later in the day again, shows no acute findings. She is unable to take care of herself and emergency medicine has asked us to admit for further rehab and supportive care. ER COURSE: Labs, imaging, Toradol and acetaminophen. After prolonged observation, we were asked to admit. Hospital day 2. Generally feels improved. At times has positional low back pain which resolves with repositioning. She is very satisfied with improvement. Exam Narrative: Exam Narrative: Examined in her room. Appears comfortable no acute distress when sitting in recliner chair at bedside. Vision and hearing are adequate. Alert and oriented to self, place, in part to time, in part to situation. Patient states she is at her baseline cognitive state. Her niece who is her power of document review attorney for health concurs. No focal motor neurologic deficits. Lungs clear to auscultation. Heart tones with regular rhythm. Abdomen is benign. Extremities without edema. Const: Vital Signs, click to edit/add: Vital Signs - 24 hr 12/21/23 16:01 12/21/23 16:31 12/21/23 17:32 Temperature Pulse Rate 60 79 63 Pulse Rate [Pulse Oximeter] Respiratory Rate 12 12 14 Blood Pressure 117/70 105/63 145/121 H Blood Pressure [Ri ght Arm] Blood Pressure [Ri ght Upper Arm] Pulse Oximetry 97 95 95 Oxygen Delivery Me thod 12/21/23 18:02 12/21/23 19:01 12/21/23 20:02 Temperature Pulse Rate 60 64 53 L Pulse Rate [Pulse Oximeter] Respiratory Rate 14 16 14 Blood Pressure 124/79 124/61 114/65 Blood Pressure [Ri ght Arm] Blood Pressure [Ri ght Upper Arm] Pulse Oximetry 95 97 97 Oxygen Delivery Me thod 12/21/23 20:11 12/21/23 20:27 12/21/23 20:27 Temperature 97.0 F L 96.8 F L Pulse Rate Pulse Rate [Pulse Oximeter] 61 56 L Respiratory Rate 14 16 16 Blood Pressure Blood Pressure [Ri ght Arm] 133/66 Blood Pressure [Ri ght Upper Arm] 124/68 Pulse Oximetry 97 97 Oxygen Delivery Me thod Room Air Room Air 12/21/23 20:29 12/21/23 22:32 12/21/23 22:35 Temperature 96.8 F L 97.7 F Pulse Rate Pulse Rate [Pulse Oximeter] 56 L 63 Respiratory Rate 16 18 Blood Pressure Blood Pressure [Ri ght Arm] 133/66 133/78 Blood Pressure [Ri ght Upper Arm] Pulse Oximetry 97 96 95 Oxygen Delivery Me thod Room Air Room Air 12/22/23 02:31 12/22/23 07:36 12/22/23 07:36 Temperature 97.4 F L 97.5 F L Pulse Rate Pulse Rate [Pulse Oximeter] 67 73 Respiratory Rate 17 18 Blood Pressure Blood Pressure [Ri ght Arm] 136/71 101/78 Blood Pressure [Ri ght Upper Arm] Pulse Oximetry 97 95 95 Oxygen Delivery Me thod Room Air Room Air 12/22/23 10:34 Temperature 98.2 F Pulse Rate Pulse Rate [Pulse Oximeter] 82 Respiratory Rate 16 Blood Pressure Blood Pressure [Ri ght Arm] 101/67 Blood Pressure [Ri ght Upper Arm] Pulse Oximetry 93 Oxygen Delivery Me thod Room Air Labs Labs: Laboratory Results - last 24 hr 12/21/23 17:35 WBC 5.50 RBC 3.42 L Hgb 11.6 L Hct 36.0 MCV 105 H MCH 34 MCHC 32 RDW Coeff of Bret 13.0 Plt Count 259 Neut % (Auto) 57.4 Lymph % (Auto) 26.9 [place] % (Auto) 13.1 H Eos % (Auto) 2.2 Baso % (Auto) 0.4 Neut # (Auto) 3.16 Lymph # (Auto) 1.48 [place] # (Auto) 0.70 Eos # (Auto) 0.12 Baso # (Auto) 0.02 Abs Immat Gran (auto) 0.00 Imm/Tot Granulo (auto) 0.0 Sodium 140 Potassium 4.2 Chloride 106 Carbon Dioxide 27 Anion Gap 7 BUN 13 Creatinine 0.9 Estimated Creat Clear 30.76 Estimated GFR 61 Glucose 104 Calcium 9.0 Imaging MRI - lumbar spine: Radiologist's impression: Impression: 1. 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 2. Chronic mild-moderate L3 superior endplate compression deformity. 3. Lumbar spondylosis, low-grade degenerative spondylolisthesis, and Modic endplate changes as detailed. 4. At T12-L1, mild-moderate spinal canal narrowing secondary to L1 cortical retropulsion. 5. At L4-L5, glxf-awphwsh-yhvp-right lateral recess stenosis with potential descending L5 nerve root impingement. 6. No high-grade neural foraminal or central spinal canal stenosis. CT scan - pelvis: Radiologist's impression: FINDINGS: Bones: Alignment is normal. No sign of acute fracture. No suspicious bony lesions. Joints: Unremarkable. No significant degenerative changes. Soft tissues: Unremarkable. IMPRESSION: No acute or specific finding to explain left buttock or hip pain.
[2023-12-22] MEDS: SENNOSIDES/DOCUSATE TABLET 1 TAB PO (16:40)
--- NOTE | 2023-12-22 16:43 | PC.SOCIAL ---
Discharge planning- Per MD, pt may be ready for discharge tomorrow. Phone call to pt's niece, Josie, to discuss discharge plans. Pt receives medication management from [facility] and does not receive any other services. Pt's daughter informs pt is on the assisted living side due to receiving medication management. Discussed recommended increase in services (Per therapy notes) which include bathing, dressing, and escorts to meals. Pt's daughter has been communicating with Meri from [facility] and will develop a plan with family to assist pt in her apartment with services. Pt's niece will transport pt back to [facility] when pt discharges. Secure e-mail to Meri at [facility] to provide an update on discharge plans. Social work will follow up as needed.
[2023-12-22 19:00] VITALS: BP 114/78; PULSE 67; RESP 16; TEMP 36.6; O2SAT 97
[2023-12-22] MEDS: LIDOCAINE 5% PATCH 1 PATCH TRANSDERMA (20:43)
--- NOTE | 2023-12-22 23:23 | PC.NURSE ---
End of Shift: Patient pleasant and cooperative. Afebrile. Denies pain throughout shift. Up to chair and bathroom with SBA, walker and gait belt. Tolerating regular diet with no nausea.
[2023-12-23 00:45] VITALS: RESP 18; O2SAT 96
[2023-12-23 00:51] VITALS: BP 142/80; PULSE 68; RESP 18; TEMP 36.6; O2SAT 96
[2023-12-23 04:25] VITALS: BP 119/74; PULSE 64; RESP 16; TEMP 36.5; O2SAT 96
[2023-12-23 06:24] LABS: Hematocrit 34.5 % (33.0-51.0); Hemoglobin* 11.4 gm/dL (12.0-16.0); Mean Corpuscular HGB Conc 33 gm/dL (32-36); Mean Corpuscular Hemoglobin 34 pg (26-34); Mean Corpuscular Volume 103 fL (80-100); Platelet Count* 237 K/uL (140-440); Red Blood Count 3.35 m/uL (4.00-5.20); White Blood Count* 5.22 K/uL (4.50-11.00)
[2023-12-23 06:33] LABS: Slide Review Reflex No
[2023-12-23 07:00] VITALS: BP 118/73; PULSE 61; RESP 16; TEMP 36.6; O2SAT 96
--- NOTE | 2023-12-23 07:00 | PC.NURSE ---
Pt is alert and oriented to self and place but struggles with month and day. Afebrile. Pt denies SOB, chest pain, and N/V. Pt denies pain and refused scheduled Tylenol stating, ?I am not in any pain, I don?t need it.??Pt is up SBA with walker to bathroom, voiding, and tolerating regular diet. Pt slept throughout most of night. Night uneventful. ?
[2023-12-23] MEDS: SENNOSIDES/DOCUSATE TABLET 1 TAB PO (09:01)
[2023-12-23] MEDS: ACETAMINOPHEN 650 MG TABLET ER 1300 MG PO (09:01)
[2023-12-23] MEDS: VENLAFAXINE ER 75 MG CAPSULE 225 MG PO (09:01)
[2023-12-23] MEDS: APIXABAN 5 MG TABLET PO (09:01)
[2023-12-23] MEDS: DONEPEZIL 10 MG TABLET PO (09:01)
[2023-12-23] MEDS: LEVOTHYROXINE 50 MCG TABLET PO (09:01)
--- NOTE | 2023-12-23 11:37 | PC.SOCIAL ---
Addendum entered by JOSE Ma 12/23/23 12:07: Received an e-mail from Meri at [facility]. Pt is ok to return and Meri requests discharge orders upon discharge. Original Note: Discharge planning- Per MD, pt is ready for discharge today. Phone call to pt's niece and provided update. Pt's niece will transport pt to [facility] at 1:00 pm. Pt's niece informs she has been in communication with [facility] regarding pt's needs. Provided update to MD, charge nurse, and pt's nurse. Phone call to Meri at [facility] at [phone] and left voicemail providing update. Follow up e-mail to Meri with update. Social work will follow up as needed.
--- NOTE | 2023-12-23 12:14 | P.DS_ITS ---
DS: Providers Provider Date Seen: 12/23/23 Date of admission: 12/21/23 20:17 Primary care physician: Mario Alberto Coe MD Admitting Clinician: Lauren Nichole MD Consults: 12/21/23 20:27 Consult to Occupational Therapy [CONS] Routine Comment: Reason(s) for OT Consult:: Evaluate and Treat Any Restrictions?:: No Restrictions Consult to Physical Therapy [CONS] Routine Comment: Reason(s) for PT Consult:: Evaluate and Treat Any Restrictions?:: No Restrictions Consult to Mail List Librarian [CONS] Routine Comment: Reason for Consult:: Social Service Consult 12/21/23 21:02 Consult to Physical Therapy [CONS] Routine Comment: Reason(s) for PT Consult:: Evaluate and Treat Any Restrictions?:: Unknown Attending Physician on discharge: Jack Godwin MD Date of Discharge: 12/23/23 DS: Diagnosis Discharge Diagnosis (1) Acute exacerbation of chronic low back pain: Status: Acute Problem details: -no new fracture, status post CT scans and MR scans on admission, 12/21/2023 -pain management needed -calcitonin nasal, Lidoderm transdermal patch, scheduled ER acetaminophen -avoid narcotics -return to assisted living with increased services including PT and OT to assess and treat (2) Osteoporotic compression fracture of spine with delayed healing: Status: Acute Problem details: -osteoporosis management per chart review - IV Reclast -adding calcitonin nasal -continue calcium and vit D (3) Dementia: Status: Acute Problem details: -continue Aricept (4) Paroxysmal A-fib: Status: Acute Problem details: -continue Eliquis -patient does not appear to be on any rate control or antihypertensives (5) Chronic anticoagulation: Status: Acute Problem details: -continue Eliquis for paroxysmal AFib stroke prevention (6) Chronic GERD: Status: Acute (7) Osteoarthritis of right knee: Status: Acute (8) Depression: Status: Acute Problem details: -continue Effexor (9) Hypothyroidism: Status: Acute Problem details: -continue levothyroxine supplementation DS: Summary Hospital Course Hospital Course: Admission history of present illness: ?88-year-old female with a history of mild cognitive decline, hypothyroidism, paroxysmal AFib on apixaban, depression and GERD is brought in by ambulance secondary to decreased mobility over the last 3 days. Patient lives across the street at [facility] (formerly [facility]) with [facility]. The staff and family have noted that Coretta has not been ambulating per her baseline and has been complaining of low back and left leg pain. No witnessed falls or reported falls. No trauma. She does have a history of previous osteoporotic fractures 2018, 2021. She had a lumbar MRI this afternoon, ordered by our ED. nonacute findings. Pelvic CT later in the day again, shows no acute findings. She is unable to take care of herself and emergency medicine has asked us to admit for further rehab and supportive care. ER COURSE: Labs, imaging, Toradol and acetaminophen. After prolonged observation, we were asked to admit. Her complain of back pain improved substantially in a relatively short period of time that she was in the hospital. At times has positional low back pain which resolves with repositioning, although remarkably she sometimes needs to be reminded that she can reposition herself. She is very satisfied with improvement. For details of findings and response during this hospitalization denys says see above section entitled diagnosis. Time Spent with Patient Time attestation: Total time spent providing and/or coordinating discharge services: Exam Narrative: Exam Narrative: Examined in her room. Appears comfortable no acute distress when sitting in recliner chair at bedside. Vision and hearing are adequate. Alert and oriented to self, place, in part to time, in part to situation. Patient states she is at her baseline cognitive state. Her niece who is her power of securities attorney for health concurs. No focal motor neurologic deficits. Lungs clear to auscultation. Heart tones with regular rhythm. Abdomen is benign. Extremities without edema. Const: Vital Signs, click to edit/add: Vital Signs - 24 hr 12/22/23 15:00 12/22/23 15:00 12/22/23 15:00 Temperature 97.0 F L Pulse Rate [Pulse Oximeter] 70 70 Respiratory Rate 18 18 Blood Pressure [Ri ght Arm] 111/73 Pulse Oximetry 94 94 Oxygen Delivery Me thod Room Air 12/22/23 19:00 12/23/23 00:45 12/23/23 00:45 Temperature 97.9 F Pulse Rate [Pulse Oximeter] 67 Respiratory Rate 16 18 Blood Pressure [Ri ght Arm] 114/78 Pulse Oximetry 97 96 Oxygen Delivery Me thod Room Air 12/23/23 00:51 12/23/23 04:25 12/23/23 07:00 Temperature 97.8 F 97.7 F 97.8 F Pulse Rate [Pulse Oximeter] 68 64 61 Respiratory Rate 18 16 16 Blood Pressure [Ri ght Arm] 142/80 H 119/74 118/73 Pulse Oximetry 96 96 96 Oxygen Delivery Me thod Room Air Room Air Room Air DS: Data Data Completed and Pending Labs on day of discharge: Labs from last 24 hours 12/23/23 05:38 WBC 5.22 RBC 3.35 L Hgb 11.4 L Hct 34.5 MCV 103 H MCH 34 MCHC 33 Plt Count [address] scan - pelvis: Attestation: I have reviewed the pertinent imaging results. Radiologist's impression: FINDINGS: Bones: Alignment is normal. No sign of acute fracture. No suspicious bony lesions. Joints: Unremarkable. No significant degenerative changes. Soft tissues: Unremarkable. IMPRESSION: No acute or specific finding to explain left buttock or hip pain. MR - lumbosacral spine: Attestation: I have reviewed the pertinent imaging results. Radiologist's impression: Impression: 1. 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 2. Chronic mild-moderate L3 superior endplate compression deformity. 3. Lumbar spondylosis, low-grade degenerative spondylolisthesis, and Modic endplate changes as detailed. 4. At T12-L1, mild-moderate spinal canal narrowing secondary to L1 cortical retropulsion. 5. At L4-L5, [id number]-right lateral recess stenosis with potential descending L5 nerve root impingement. 6. No high-grade neural foraminal or central spinal canal stenosis. Discharge Plan Discharge Disposition: [facility] Date of Admission: 12/21/23 20:17 Attending Provider on Discharge: Jack Godwin Primary Care Provider: Mario Alberto Coe Condition: Stable Anticipated Discharge Date/Time: 12/23/23 12:30 Discharge Medications: New acetaminophen 650 mg tablet extended release 1,300 mg PO Q12H Qty: 60 1RF lidocaine 5 % Adhesive Patch,Medicated 1 patch transdermal Q24H 30 Days Qty: 30 0RF Rx Instructions: Apply once daily in morning and remove 12 hours later. Continued Lumigan 0.01 % drops 1 drp ophthalmic (eye) QPM Patient Comments: BOTH EYES Eliquis 5 mg tablet 5 mg PO BID calcium carbonate-vitamin D3 [Calcium 600 + D(3)] 600 mg-10 mcg (400 unit) tablet 2 tab PO DAILY donepezil 10 mg tablet 10 mg PO QHS levothyroxine [Levoxyl] 50 mcg tablet 50 mcg PO DAILY multivitamin,[id number] Tablet venlafaxine 75 mg capsule,extended release 24hr 225 mg PO QPM Betimol 0.5 % drops 1 drp ophthalmic (eye) DAILY Patient Comments: BOTH EYES PreserVision AREDS 4,296 mcg-226 mg-90 mg capsule 1 cap PO DAILY No Action acetaminophen 500 mg capsule 1,000 mg PO Q8H PRN Discharge Orders: Discharge Order (Routine); Ordered 12/23/23 Ordered By: Jack Godwin Additional Instructions: 1. Follow-up with primary care physician in 7-14 days, sooner if needed Activity Level: Activity as Tolerated and Use Walker Discharge Diet: Regular Follow Up Appointments: Mario Alberto Coe MD [Primary Care Provider] - (7-14 days) Laura Jean PA-C [Referring] - 12/29/23 10:30 am ([facility] for postop follow-up.) Provider,Not a Local [Referring] - Forms: Posiq Info Instructions Admit to: Assisted Living Discharge Potential: Poor Length of Stay: >90 days Can use facility standing orders?: Yes Code Status: Full Code TEDs: N/A Rehab Potential: Fair Therapy: Physical Therapy and Occupational Therapy Therapy Orders: Evaluate and Treat Oxygen: No Urinary Catheter: No Orders are good >30 days: Yes Signature: Jack Godwin
--- NOTE | 2023-12-23 13:34 | PC.NURSE ---
The patient discharged back to [facility] with her Niece this afternoon. All belongings were accounted for. Discharge information was faxed over to [facility]. Nurse to Nurse report was also given to Bonifacio at the facility. All questions were answered. Sonali MONTIEL BSN
== END 2023-12-23 13:17 ==
LOC: ED 19:28 → MEDSURG 20:18
PROVIDERS: Internal Medicine; Admitting Provider Family Medicine; Emergency Provider Emergency Medicine; PCP Family Medicine; Visit Provider Family Medicine
DX: M54.50 Low back pain, unspecified (principal); G89.29 Other chronic pain; M80.88XG Other osteoporosis with current pathological fracture, vertebra(e), subsequent encounter for fracture with delayed healing; F03.90 Unspecified dementia, unspecified severity, without behavioral disturbance, psychotic disturbance, mood disturbance, and anxiety; M17.11 Unilateral primary osteoarthritis, right knee; M79.605 Pain in left leg; M79.18 Myalgia, other site; M79.604 Pain in right leg; Z74.09 Other reduced mobility; I48.0 Paroxysmal atrial fibrillation; Z79.01 Long term (current) use of anticoagulants; K21.9 Gastro-esophageal reflux disease without esophagitis; F32.A Depression, unspecified; E03.9 Hypothyroidism, unspecified; Z90.89 Acquired absence of other organs; Z90.49 Acquired absence of other specified parts of digestive tract; Z96.659 Presence of unspecified artificial knee joint; Z86.69 Personal history of other diseases of the nervous system and sense organs
CPT/HCPCS: 36415; 72148; 72192; 80048; 85025; 85027; 93005; 96361; 96374; 97116; 97161; 97165; 97535; 99284; 99285; A9270; G0378; J1885

== ENCOUNTER 2024-03-15 12:53 | Outpatient (CLI) | payer MEDICARE, OTHER, SELFPAY | END 2024-03-15 12:54 | disposition home or self-care (01) | LOC: AMB 03-29 03:54 | PROVIDERS: PCP Family Medicine; Visit Provider Family Medicine | DX: R41.82 Altered mental status, unspecified (principal) | CPT/HCPCS: A0425; A0427 ==

== ENCOUNTER 2024-03-15 13:19 | Emergency (ER) | payer MEDICARE, OTHER, SELFPAY ==
[2024-03-15] VITALS (33 sets, daily range): BP systolic 117–150; BP diastolic 59–82; PULSE 47–74; RESP 14; TEMP 36.2; O2SAT 93–100; BMI 27.8
--- NOTE | 2024-03-15 13:28 | ED_ITS ---
HPI - General Adult General Chief complaint: Fall/Minor Trauma Stated complaint: Fall Time Seen by Provider: 03/15/24 13:21 History of Present Illness HPI narrative: pt fell getting out of shower, unwitnessed. denies injury. on eliquis for afib. hx alzheimers, lives at [facility]. 88-year-old woman presenting to the emergency department via EMS from nearby alf after a fall. Apparently as she describes it was in the shower. Just completed the shower about and was coming out of the shower and everything went dark. She denies that she hit her head. She denies chest pain or shortness of breath. It is not clear that it was a trip and fall. She actually denies that she passed out when asked directly but does not recall events surrounding this. Unknown downtime and when EMS arrived sitting her up she vomited. Staff was also concerned due to noted bradycardia and altered mental status following this event. Does not have a seizure history I was not noted to have demonstrating seizure-like activity. She denies neck or back pain, denies abdominal pain. No visual disturbance. No hip pain. TTA is called upon arrival via EMS as noted Medications and past medical reviewed. Allergies reviewed Related Data Home Medications ?Medication ?Instructions ?Recorded ?Confirmed bimatoprost 0.01 % eye drops 1 drp ophthalmic (eye) QPM 12/21/23 12/21/23 (Lumigan) acetaminophen 500 mg capsule 1,000 mg PO Q8H PRN 12/22/23 12/22/23 apixaban 5 mg tablet (Eliquis) 5 mg PO BID 12/22/23 12/22/23 calcium carbonate 600 mg-vitamin 2 tab PO DAILY 12/22/23 12/22/23 D3 10 mcg (400 unit) tablet (Calcium 600 + D(3)) donepezil 10 mg tablet 10 mg PO QHS 12/22/23 12/22/23 levothyroxine 50 mcg tablet 50 mcg PO DAILY 12/22/23 12/22/23 (Levoxyl) multivitamin,xp-oryb-Qi-FA-min tab 12/22/23 timolol 0.5 % eye drops (Betimol) 1 drp ophthalmic (eye) DAILY 12/22/23 12/22/23 venlafaxine 75 mg capsule,extended 225 mg PO QPM 12/22/23 12/22/23 release 24 hr vitamins A,C,Y-ijmi-fqeuap 4,296 1 cap PO DAILY 12/22/23 12/22/23 mcg-226 mg-90 mg capsule (PreserVision AREDS) Previous Rx's ?Medication ?Instructions ?Recorded acetaminophen 650 mg 1,300 mg (2 x 650 mg) PO Q12H #60 12/23/23 tablet,extended release tabs lidocaine 5 % topical patch 1 patch transdermal Q24H 30 days 12/23/23 #30 ea Allergies Allergy/AdvReac Type Severity Reaction Status Date / Time No Known Drug Allergies Allergy Verified 12/21/23 14:03 Review of Systems Status of ROS: Reports: 6 or more systems reviewed and unremarkable except as noted in History and below [facility] Medical History Osteoarthritis of right knee ?M17.11 - Unilateral primary osteoarthritis, right knee (ICD-10) Chronic GERD ?K21.9 - Gastro-esophageal reflux disease without esophagitis (ICD-10) Depression ?F32.A - Depression, unspecified (ICD-10) Chronic anticoagulation ?Z79.01 - assistant terminal manager (current) use of anticoagulants (ICD-10) Paroxysmal A-fib ?I48.0 - Paroxysmal atrial fibrillation (ICD-10) Hypothyroidism ?E03.9 - Hypothyroidism, unspecified (ICD-10) Dementia ?F03.90 - Unspecified dementia, unspecified severity, without behavioral disturbance, psychotic disturbance, mood disturbance, and anxiety (ICD-10) Surgical History Hx of tonsillectomy ?Z90.89 - Acquired absence of other organs (ICD-10) Hx of total knee arthroplasty ?Z96.659 - Presence of unspecified artificial knee joint (ICD-10) History of cataract ?Z86.69 - Personal history of other diseases of the nervous system and sense organs (ICD-10) History of appendectomy ?Z90.49 - Acquired absence of other specified parts of digestive tract (ICD- 10) Social History Narrative: Resides at [facility]. Her niece is her emergency contact and healthcare power admitted attorneys. . no children. Lived in [place] for years. What is your current living situation?: I presently have a place to live Problems where you live: no known problems Problems where you live details: n/a In the past 12 months, utilities in danger of being shut off: no In past 12 months, lack of transportation kept you from medical appts, meetings, work, or getting things needed for daily living: no In the past 12 mos, have been you worried that your food would run out before you had money to buy more?: never true In the past 12 mos, the food you bought just didn't last and you didn't have money to buy more?: never true Smoking Status: Never smoker How often do you have a drink containing alcohol: never AUDIT-C Alcohol total score: 0 Non-prescribed substance use: denies use Caffeine: Yes (coffee) How often does anyone, including family, friends and others, physically hurt you : never How often does anyone, including family, friends and others, insult or talk down to you: never How often does anyone, including family, friends and others, threaten you with harm: never How often does anyone, including family, friends and others, scream or curse at you: never service: No Exam Narrative: Exam Narrative: Vitals are noted. Indeed is bradycardic but appears to be in a regular rhythm. Breathing easily with open airway No evidence of injury or bleeding on her person. GCS 15. Pupils are equal and brisk and accommodating. Eyes are bright consistent with lens implantation. Moving all extremities without difficulty. Head is atraumatic. Neck noted to have C-collar in place. Denying neck pain after palpation does not have any pain I removed the C-collar. She is relieved to have this off explaining about the horse collar that we just had her in. Chest is without evidence of injury. No discomfort to palpation of the clav icles. Equal expansion excursion. Lungs appear to be clear. Heart appears to be in a regular rhythm but slower. Abdomen is protuberant soft nontender. Pelvis does not show any evidence of instability or discomfort to palpation or anterior compression. Extremities are without abrasions or erythema. Well-perfused. Back is without tenderness or deformity. Const: Vital Signs, click to edit/add: Vital Signs - 24 hr 03/15/24 13:25 03/15/24 13:26 03/15/24 13:26 Temperature 97.2 F L Pulse Rate 50 L Pulse Rate [Pulse Oximeter] 49 L Pulse Rate [orthos tatic lying] Pulse Rate [orthos tatic sitting] Pulse Rate [orthos tatic standing] Respiratory Rate 14 Blood Pressure 128/76 Blood Pressure [Ri ght Upper Arm] 128/76 Blood Pressure [or thostatic lying] Blood Pressure [or thostatic sitting] Blood Pressure [or thostatic standing ] Pulse Oximetry 97 99 Oxygen Delivery Me thod Room Air 03/15/24 13:28 03/15/24 13:30 03/15/24 13:31 Temperature Pulse Rate 48 L 47 L Pulse Rate [Pulse Oximeter] Pulse Rate [orthos tatic lying] Pulse Rate [orthos tatic sitting] Pulse Rate [orthos tatic standing] Respiratory Rate Blood Pressure 124/62 Blood Pressure [Ri ght Upper Arm] Blood Pressure [or thostatic lying] Blood Pressure [or thostatic sitting] Blood Pressure [or thostatic standing ] Pulse Oximetry 95 100 99 Oxygen Delivery Il thod 03/15/24 13:49 03/15/24 13:50 03/15/24 13:51 Temperature Pulse Rate 48 L 58 L 59 L Pulse Rate [Pulse Oximeter] Pulse Rate [orthos tatic lying] Pulse Rate [orthos tatic sitting] Pulse Rate [orthos tatic standing] Respiratory Rate Blood Pressure 126/62 136/63 Blood Pressure [Ri ght Upper Arm] Blood Pressure [or thostatic lying] Blood Pressure [or thostatic sitting] Blood Pressure [or thostatic standing ] Pulse Oximetry 100 98 99 Oxygen Delivery Me thod 03/15/24 13:57 03/15/24 14:00 03/15/24 14:01 Temperature Pulse Rate 57 L 60 53 L Pulse Rate [Pulse Oximeter] Pulse Rate [orthos tatic lying] Pulse Rate [orthos tatic sitting] Pulse Rate [orthos tatic standing] Respiratory Rate Blood Pressure 133/62 128/76 Blood Pressure [Ri ght Upper Arm] Blood Pressure [or thostatic lying] Blood Pressure [or thostatic sitting] Blood Pressure [or thostatic standing ] Pulse Oximetry 98 95 98 Oxygen Delivery Me thod 03/15/24 14:06 03/15/24 14:11 03/15/24 14:15 Temperature Pulse Rate 63 62 Pulse Rate [Pulse Oximeter] Pulse Rate [orthos tatic lying] Pulse Rate [orthos tatic sitting] Pulse Rate [orthos tatic standing] Respiratory Rate Blood Pressure 123/82 135/76 Blood Pressure [Ri ght Upper Arm] Blood Pressure [or thostatic lying] Blood Pressure [or thostatic sitting] Blood Pressure [or thostatic standing ] Pulse Oximetry 98 [facility] 14:16 03/15/24 14:21 03/15/24 14:27 Temperature Pulse Rate 63 50 L 60 Pulse Rate [Pulse Oximeter] Pulse Rate [orthos tatic lying] Pulse Rate [orthos tatic sitting] Pulse Rate [orthos tatic standing] Respiratory Rate Blood Pressure 144/69 H 150/64 H 148/69 H Blood Pressure [Ri ght Upper Arm] Blood Pressure [or thostatic lying] Blood Pressure [or thostatic sitting] Blood Pressure [or thostatic standing ] Pulse Oximetry 98 98 98 [facility] 03/15/24 14:30 03/15/24 14:32 03/15/24 14:51 Temperature Pulse Rate 60 66 74 Pulse Rate [Pulse Oximeter] Pulse Rate [orthos tatic lying] Pulse Rate [orthos tatic sitting] Pulse Rate [orthos tatic standing] Respiratory Rate Blood Pressure 137/72 Blood Pressure [Ri ght Upper Arm] Blood Pressure [or thostatic lying] Blood Pressure [or thostatic sitting] Blood Pressure [or thostatic standing ] Pulse Oximetry 98 94 93 [facility] 03/15/24 15:00 03/15/24 15:01 03/15/24 15:15 Temperature Pulse Rate 63 61 64 Pulse Rate [Pulse Oximeter] Pulse Rate [orthos tatic lying] Pulse Rate [orthos tatic sitting] Pulse Rate [orthos tatic standing] Respiratory Rate Blood Pressure 129/61 Blood Pressure [Ri ght Upper Arm] Blood Pressure [or thostatic lying] Blood Pressure [or thostatic sitting] Blood Pressure [or thostatic standing ] Pulse Oximetry 96 97 [facility] 03/15/24 15:16 03/15/24 15:22 03/15/24 15:25 Temperature Pulse Rate 66 64 Pulse Rate [Pulse Oximeter] Pulse Rate [orthos tatic lying] Pulse Rate [orthos tatic sitting] Pulse Rate [orthos tatic standing] Respiratory Rate Blood Pressure 130/73 117/59 L 119/61 Blood Pressure [Ri ght Upper Arm] Blood Pressure [or thostatic lying] Blood Pressure [or thostatic sitting] Blood Pressure [or thostatic standing ] Pulse Oximetry 96 97 Oxygen Delivery Me thod 03/15/24 15:28 03/15/24 15:29 03/15/24 15:30 Temperature Pulse Rate 69 52 L Pulse Rate [Pulse Oximeter] Pulse Rate [orthos tatic lying] 65 Pulse Rate [orthos tatic sitting] 68 Pulse Rate [orthos tatic standing] 65 Respiratory Rate Blood Pressure 131/74 Blood Pressure [Ri ght Upper Arm] Blood Pressure [or thostatic lying] 134/72 Blood Pressure [or thostatic sitting] 117/82 Blood Pressure [or thostatic standing ] 119/72 Pulse Oximetry 96 Oxygen Delivery Il thod 03/15/24 15:31 03/15/24 15:46 03/15/24 16:01 Temperature Pulse Rate Pulse Rate [Pulse Oximeter] Pulse Rate [orthos tatic lying] Pulse Rate [orthos tatic sitting] Pulse Rate [orthos tatic standing] Respiratory Rate Blood Pressure 140/69 H 124/59 L 134/61 Blood Pressure [Ri ght Upper Arm] Blood Pressure [or thostatic lying] Blood Pressure [or thostatic sitting] Blood Pressure [or thostatic standing ] Pulse Oximetry Oxygen Delivery Il thod 03/15/24 16:01 03/15/24 16:03 Temperature Pulse Rate 58 L Pulse Rate [Pulse Oximeter] Pulse Rate [orthos tatic lying] Pulse Rate [orthos tatic sitting] Pulse Rate [orthos tatic standing] Respiratory Rate Blood Pressure 134/61 Blood Pressure [Ri ght Upper Arm] Blood Pressure [or thostatic lying] Blood Pressure [or thostatic sitting] Blood Pressure [or thostatic standing ] Pulse Oximetry 93 Oxygen Delivery Il thod Documenting provider has reviewed patient's vital signs: yes Course Vital Signs Vital signs: Initial Vital Signs Blood Pressure 128/76 03/15/24 13:25 Blood Pressure Mean 93 03/15/24 13:25 Vital Signs Blood Pressure 128/76 03/15/24 13:25 Temperature 97.2 F L 03/15/24 13:26 Pulse Rate 58 L 03/15/24 16:03 Respiratory Rate 14 03/15/24 13:26 Blood Pressure 134/61 03/15/24 16:01 Pulse Oximetry 93 03/15/24 16:03 Oxygen Delivery Method Room Air 03/15/24 13:26 Medications Administered Medications: Discontinued Medications Generic Name Dose Route Start Last Admin Trade Name Troy PRN Reason Stop Dose Admin Sodium Chloride 500 mls @ 500 mls/hr 03/15/24 13:28 03/15/24 15:00 0.9 % Sodium Chloride 500 Ml IV 03/15/24 14:27 Infused .Q1H ONE Infusion Medical Decision Making MDM Narrative Medical decision making narrative: Initial events of this apparent fall are unclear partly due to dementia and what might be otherwise normal loss of memory of this event. Does not appear to have hit her head however with lack of clarity and being on Eliquis would be a good idea scan. Does not have any other areas of pain. Will look for evidence of anemia, monitor for dysrhythmia, IV hydration, look for evidence of infection might have contributed further weakness or predisposition to syncope. Noncontrast head CT reviewed by me shows some central are falx calcifications that I think would be chronic. Radiology over-read as below Head CT without contrast. COMPARISON: None. FINDINGS: ventricles are symmetric. Basal cisterns patent. No sulcal effacement. The ventricles, cisterns, and other CSF containing spaces are symmetrically prominent secondary to diffuse parenchymal volume loss but are otherwise normal as to shape and position. BRAIN: Diffuse cerebral volume loss. Periventricular and subcortical hypodensities likely secondary to age-related microvascular ischemic changes. No acute infarct or hemorrhage. VASCULAR: Calcification of the cavernous carotids and V4 segments of vertebral arteries. EXTRA-AXIAL: Extra-axial spaces are normal. EXTRA-CRANIAL: No acute calvarial or facial fractures. Mild scattered sinus mucosal thickening. Mastoids are clear. Bilateral lens replacements. IMPRESSION: No acute intracranial abnormality. Upon further recollection it sounds as though she had been taking hot shower and went to stand up to get her towel at which point things ?went black?. Daughter who accompanies later describes how she has been having semi frequent falls. Discussions have been underway as to whether not needs to advance care in her assisted living. This bradycardia as demonstrated here today's not entirely new. December 2023 visit showed similar. Will road test and re-evaluate for symptoms Appears to be doing quite well failure. With normal orthostatics and asymptomatic. I think is safe for discharge back to assisted living. Daughter has already requested more shower assistance at assisted living. See patient discharge plan for further discussion Medical Records Medical records reviewed: Yes I reviewed the patient's medical records Lab Data Labs: Lab Results 03/15/24 03/15/24 03/15/24 Range/Units 13:29 14:01 14:09 WBC 4.87 (4.50-11.00) K/uL RBC 3.30 L (4.00-5.20) m/uL Hgb 11.1 L (12.0-16.0) gm/dL Hct 34.8 (33.0-51.0) % MCV 106 H (80-100) fL MCH 34 (26-34) pg MCHC 32 (32-36) gm/dL RDW Coeff of Bret 12.9 (11.5-15.5) % Plt Count 201 (140-440) K/uL Neut % (Auto) 59.0 (42.0-72.0) % Lymph % (Auto) 24.2 (20-44) % Pepin % (Auto) 12.1 H (0.0-11.0) % Eos % (Auto) 3.9 (0.0-7.0) % Baso % (Auto) 0.6 (0.0-3.0) % Neut # (Auto) 2.87 (1.7-7.0) K/uL Lymph # (Auto) 1.18 (0.90-2.90) K/uL Pepin # (Auto) 0.60 (0.00-0.90) K/UL Eos # (Auto) 0.19 (0.00-0.50) K/uL Baso # (Auto) 0.03 (0.00-0.30) K/uL Abs Immat Gran (auto) 0.01 (0.00-0.30) K/uL Imm/Tot Granulo (auto) 0.2 % Sodium 136 (135-149) mmol/L Potassium 4.3 (3.6-5.1) mmol/L Chloride 106 (96-114) mmol/L Carbon Dioxide 26 (20-32) mmol/L Anion Gap 4 L (7-15) mEq/L BUN 9 (7-30) mg/dL Creatinine 0.7 (0.5-1.5) mg/dL Estimated Creat Clear 30.76 Estimated GFR 83 ml/min Glucose 100 (60-115) mg/dL Lactate 1.6 (0.5-1.9) mmol/L Calcium 9.0 (8.4-10.6) mg/dL Magnesium 2.2 (1.5-2.6) mg/dL Total Bilirubin 0.6 (0.1-1.5) mg/dL Direct Bilirubin 0.3 (0.0-0.5) mg/dL AST 32 (12-35) U/L ALT 14 (4-35) U/L Alkaline Phosphatase 68 (40-150) U/L Troponin I 0.01 (0.01-0.04) ng/mL C-Reactive Protein 1.1 H (0.5-1.0) mg/dL NT-Pro-B Natriuret Pep 528 pg/mL Total Protein 6.3 (6.0-8.3) g/dL Albumin 3.8 (3.3-5.0) g/dL Urine Color (Yellow) Urine Appearance (Clear) Urine pH (5.0-8.5) Ur Specific [place] (1.000-1.030) Urine Protein (Negative) Urine Glucose (UA) (Negative) Urine Ketones (Negative) Urine Blood (Negative) Urine Nitrite (Negative) Urine Bilirubin (Negative) Urine Urobilinogen (0.2-1.0) Ur Leukocyte Esterase (Negative) Urine RBC (0-2) Urine WBC (0-5) Ur Squamous Epith Cells (None-Few) Urine Bacteria (None) SARS-CoV-2 (PCR) Negative SARS-CoV-2 (Negative) Influenza Type A (PCR) Negative PCR FLU A (Negative) Influenza Type B (PCR) Negative PCR FLU B (Negative) POC Troponin I 0.01 (0.01-0.04) ng/ml 03/15/24 Range/Units 14:58 WBC (4.50-11.00) K/uL RBC (4.00-5.20) m/uL Hgb (12.0-16.0) gm/dL Hct (33.0-51.0) % MCV (80-100) fL MCH (26-34) pg MCHC (32-36) gm/dL RDW Coeff of Bret (11.5-15.5) % Plt Count (140-440) K/uL Neut % (Auto) (42.0-72.0) % Lymph % (Auto) (20-44) % Pepin % (Auto) (0.0-11.0) % Eos % (Auto) (0.0-7.0) % Baso % (Auto) (0.0-3.0) % Neut # (Auto) (1.7-7.0) K/uL Lymph # (Auto) (0.90-2.90) K/uL Pepin # (Auto) (0.00-0.90) K/UL Eos # (Auto) (0.00-0.50) K/uL Baso # (Auto) (0.00-0.30) K/uL Abs Immat Gran (auto) (0.00-0.30) K/uL Imm/Tot Granulo (auto) % Sodium (135-149) mmol/L Potassium (3.6-5.1) mmol/L Chloride (96-114) mmol/L Carbon Dioxide (20-32) mmol/L Anion Gap (7-15) mEq/L BUN (7-30) mg/dL Creatinine (0.5-1.5) mg/dL Estimated Creat Clear Estimated GFR ml/min Glucose (60-115) mg/dL Lactate (0.5-1.9) mmol/L Calcium (8.4-10.6) mg/dL Magnesium (1.5-2.6) mg/dL Total Bilirubin (0.1-1.5) mg/dL Direct Bilirubin (0.0-0.5) mg/dL AST (12-35) U/L ALT (4-35) U/L Alkaline Phosphatase (40-150) U/L Troponin I (0.01-0.04) ng/mL C-Reactive Protein (0.5-1.0) mg/dL NT-Pro-B Natriuret Pep pg/mL Total Protein (6.0-8.3) g/dL Albumin (3.3-5.0) g/dL Urine Color Yellow (Yellow) Urine Appearance Clear (Clear) Urine pH 7.0 (5.0-8.5) Ur Specific [place] 1.010 (1.000-1.030) Urine Protein Negative (Negative) Urine Glucose (UA) Negative (Negative) Urine Ketones Negative (Negative) Urine Blood Negative (Negative) Urine Nitrite Negative (Negative) Urine Bilirubin Negative (Negative) Urine Urobilinogen 0.2 (0.2-1.0) Ur Leukocyte Esterase Negative (Negative) Urine RBC 0-2 (0-2) Urine WBC 0-2 (0-5) Ur Squamous Epith Cells Few (None-Few) Urine Bacteria None (None) SARS-CoV-2 (PCR) (Negative) Influenza Type A (PCR) (Negative) Influenza Type B (PCR) (Negative) POC Troponin I (0.01-0.04) ng/ml ECG Data Attestation: I personally reviewed and interpreted this ECG as follows: (Sinus bradycardia at a rate of 49. ) Critical Care Time Critical Care Time Total Critical Care Time in Minutes: 70 Discharge Plan Discharge Clinical Impression: Orthostatic syncope Patient Disposition: Home w/ Parent or Adult Condition: Improved Additional Instructions: It does sound like there was a constellation of events that came together to cause you to go down. I think taking a hot shower then standing up and moving too quickly all in the setting of bradycardia was a problem. I am sorry it is frustrating perhaps to hear that you need to slow down a little bit. Just remember to take time in transfers. Keep walking assist devices at hand. Prescriptions: No Action Lumigan 0.01 % drops 1 drp ophthalmic (eye) QPM Patient Comments: BOTH EYES acetaminophen 500 mg capsule 1,000 mg PO Q8H PRN Eliquis 5 mg tablet 5 mg PO BID calcium carbonate-vitamin D3 [Calcium 600 + D(3)] 600 mg-10 mcg (400 unit) tablet 2 tab PO DAILY donepezil 10 mg tablet 10 mg PO QHS levothyroxine [Levoxyl] 50 mcg tablet 50 mcg PO DAILY multivitamin,gh-cyzk-Ag-FA-min Tablet venlafaxine 75 mg capsule,extended release 24hr 225 mg PO QPM Betimol 0.5 % drops 1 drp ophthalmic (eye) DAILY Patient Comments: BOTH EYES PreserVision AREDS 4,296 mcg-226 mg-90 mg capsule 1 cap PO DAILY acetaminophen 650 mg tablet extended release 1,300 mg PO Q12H Qty: 60 1RF lidocaine 5 % Adhesive Patch,Medicated 1 patch transdermal Q24H 30 Days Qty: 30 0RF Rx Instructions: Apply once daily in morning and remove 12 hours later. Follow Up/Referrals: Mario Alberto Coe MD [Primary Care Provider] - Stand Alone Forms: [employer] Info Instructions
--- NOTE | 2024-03-15 13:29 | CRLHL7_ITS ---
For Patients: As a result of the Cures Act, medical imaging exams and procedure reports are released immediately into your electronic medical record. You may view this report before your referring provider. If you have questions, please contact your health care provider. INDICATION: Fall/syncope. TECHNIQUE: Head CT without contrast. COMPARISON: None. FINDINGS: ventricles are symmetric. Basal cisterns patent. No sulcal effacement. The ventricles, cisterns, and other CSF containing spaces are symmetrically prominent secondary to diffuse parenchymal volume loss but are otherwise normal as to shape and position. BRAIN: Diffuse cerebral volume loss. Periventricular and subcortical hypodensities likely secondary to age-related microvascular ischemic changes. No acute infarct or hemorrhage. VASCULAR: Calcification of the cavernous carotids and V4 segments of vertebral arteries. EXTRA-AXIAL: Extra-axial spaces are normal. EXTRA-CRANIAL: No acute calvarial or facial fractures. Mild scattered sinus mucosal thickening. Mastoids are clear. Bilateral lens replacements. IMPRESSION: No acute intracranial abnormality. Please note that all CT scans at this facility use dose modulation, iterative reconstruction, and/or weight-based dosing when appropriate to reduce radiation dose to as low as reasonably achievable. Dictated by Chuyita Chand MD @ 03/15/2024 1:52:02 PM (Electronically Signed)
[2024-03-15] MEDS: 0.9 % SODIUM CHLORIDE 500 ML 500 ML IV (14:00)
[2024-03-15 14:14] LABS: Lactate* 1.6 mmol/L (0.5-1.9)
[2024-03-15 14:19] LABS: Basophils Absolute Auto 0.03 K/uL (0.00-0.30); Basophils Percent Auto 0.6 % (0.0-3.0); Eosinophils Absolute Auto 0.19 K/uL (0.00-0.50); Eosinophils Percent Auto 3.9 % (0.0-7.0); Hematocrit 34.8 % (33.0-51.0); Hemoglobin* 11.1 gm/dL (12.0-16.0); Immature Granulocytes Abs Auto 0.01 K/uL (0.00-0.30); Immature Granulocytes Pct Auto 0.2 %; Lymphocytes Absolute Auto 1.18 K/uL (0.90-2.90); Lymphocytes Percent Auto 24.2 % (20-44); Mean Corpuscular HGB Conc 32 gm/dL (32-36); Mean Corpuscular Hemoglobin 34 pg (26-34); Mean Corpuscular Volume 106 fL (80-100); Monocytes Percent Auto 12.1 % (0.0-11.0); Neutrophils Absolute Auto 2.87 K/uL (1.7-7.0); Platelet Count* 201 K/uL (140-440); RDW Coefficient of Variation % 12.9 % (11.5-15.5); White Blood Count* 4.87 K/uL (4.50-11.00)
[2024-03-15 14:23] LABS: Troponin, Point-of-Care* 0.01 ng/ml (0.01-0.04)
[2024-03-15 14:24] LABS: Slide Review Reflex No
[2024-03-15 14:31] LABS: Albumin* 3.8 g/dL (3.3-5.0); Chloride* 106 mmol/L (96-114)
[2024-03-15 14:32] LABS: Potassium* 4.3 mmol/L (3.6-5.1); Sodium* 136 mmol/L (135-149)
[2024-03-15 14:34] LABS: Creatinine* 0.7 mg/dL (0.5-1.5); Est. Creatinine Clearance* 30.76; Estimated Glomerular Filt Rate 83 ml/min
[2024-03-15 14:35] LABS: Alanine Aminotransferase* 14 U/L (4-35); Alkaline Phosphatase* 68 U/L (40-150); Anion Gap 4 mEq/L (7-15); Aspartate Amino Transferase* 32 U/L (12-35); Bilirubin Direct* 0.3 mg/dL (0.0-0.5); Bilirubin Total* 0.6 mg/dL (0.1-1.5); Blood Urea Nitrogen* 9 mg/dL (7-30); Carbon Dioxide* 26 mmol/L (20-32); Glucose* 100 mg/dL (60-115); Magnesium* 2.2 mg/dL (1.5-2.6); Total Protein* 6.3 g/dL (6.0-8.3)
[2024-03-15 14:38] LABS: C Reactive Protein* 1.1 mg/dL (0.5-1.0)
[2024-03-15 14:47] LABS: NT Pro B Type NatriureticPept* 528 pg/mL; Troponin I* 0.01 ng/mL (0.01-0.04)
[2024-03-15 14:48] LABS: PCR FLU A Negative PCR FLU A (Negative); PCR FLU B Negative PCR FLU B (Negative); SARS PCR* Negative SARS-CoV-2 (Negative)
[2024-03-15 15:13] LABS: Appearance Urine Clear (Clear); Bilirubin Urine Negative (Negative); Blood Urine Negative (Negative); Color Urine Yellow (Yellow); Glucose Urine Negative (Negative); Ketones Urine Negative (Negative); Leukocyte Esterase Urine Negative (Negative); Nitrite Urine Negative (Negative); Protein Urine Negative (Negative); Urobilinogen Urine 0.2 (0.2-1.0)
[2024-03-15 15:18] LABS: RBC Urine 0-2 (0-2); Squamous Epithelial Cell Urine Few (None-Few); WBC Urine 0-2 (0-5)
== END 2024-03-15 16:25 | disposition home or self-care (01) ==
PROVIDERS: Emergency Provider Family Medicine; PCP Family Medicine
DX: I95.1 Orthostatic hypotension (principal)
CPT/HCPCS: 36415; 70450; 80048; 80076; 81001; 83605; 83735; 83880; 84484; 85025; 86140; 87631; 93005; 99284; 99291; G0390; J7030

== ENCOUNTER 2024-11-13 10:47 | Outpatient (CLI) | payer MEDICARE, OTHER, SELFPAY ==
[2024-11-13 11:48] LABS: Appearance Urine Clear (Clear); Bilirubin Urine Negative (Negative); Blood Urine Trace-intact (Negative); Color Urine Yellow (Yellow); Glucose Urine Negative (Negative); Ketones Urine Negative (Negative); Leukocyte Esterase Urine Negative (Negative); Nitrite Urine Negative (Negative); Protein Urine Trace (Negative); Specific Gravity Urine 1.025 (1.000-1.030); Urobilinogen Urine 0.2 (0.2-1.0)
[2024-11-13 12:01] LABS: Bacteria Urine Moderate; Squamous Epithelial Cell Urine Moderate (None-Few); WBC Urine 0-2 (0-5)
== END 2024-11-13 10:48 | disposition home or self-care (01) ==
LOC: LAB 10:50 → NPINS 11:18
PROVIDERS: PCP Family Medicine; Visit Provider Family Medicine
DX: R41.82 Altered mental status, unspecified (principal); R39.15 Urgency of urination
CPT/HCPCS: 81001; 87086